=== PATIENT | male | born 1935 ===

== ENCOUNTER 2018-04-16 06:08 | Day surgery (SDC) | payer MEDICARE, MEDICAID ==
--- NOTE | 2018-04-12 08:52 | Pre-Procedure Note/Attestation ---
Pre-Procedure Note/Attestation Complete Prior to Procedure Planned Procedure: right Procedure Narrative: 1. CATARACT EXTRACTION WITH PHACO AND PC IOL IMPLANTATION, RIGHT EYE. 2. LIMBAL RELAXING INCISION, RIGHT EYE 3.MALYUGIN RING INSERTION, RIGHT EYE FOR FLOPPY IRIS SYNDROME. 4.COMPLEX CATARACT , RIGHT EYE Indications for Procedure Pre-Operative Diagnosis: 1. CATARACT , RIGHT EYE. 2. ASTIGMATISM, RIGHT EYE. 3. FLOPPY IRIS SYNDROME, RIGHT EYE 4. COMPLEX CATARACT , RIGHT EYE Attestation I attest that I discussed the nature of the procedure; its benefits; risks and complications; and alternatives (and the risks and benefits of such alternatives ), prior to the procedure, with the patient (or the patient's legal personal service representative). I attest that, if there was a reasonable possibility of needing a blood transfusion, the patient (or the patient's legal personal service representative) was given the [facility] standardized written summary, pursuant to the Asim Delon Blood Safety Act ([place] Health and Safety Code # 1645, as amended). I attest that I re-evaluated the patient just prior to the surgery and that there has been no change in the patient's H&P, except as documented below: Jaun White MD Apr 12, 2018 08:52
--- NOTE | 2018-04-15 13:20 | NUR ---
LEFT MESSAGE WITH INSTRUCTIONS WITH [facility] [employer] CLIENT MANAGER,BUBBA #[id number].
[2018-04-16] VITALS (9 sets, daily range): BP systolic 129–147; BP diastolic 63–79
[~2018-04-16] VITALS: Ht 182.9 cm; Wt 82.1 kg
[~2018-04-16 06:08] MED LIST: acetaZOLAMIDE 125mg tab ORAL ONE
[2018-04-16] MEDS: Phenylephrine 10% Opth Soln 5ml RIGHT EYE SCH ×3 (06:48→07:07)
[2018-04-16] MEDS: Akten 3.5% 1ml Btl RIGHT EYE SCH ×3 (06:48→07:06)
[2018-04-16] MEDS: Vigamox Opth Soln 3ml RIGHT EYE SCH ×3 (06:48→07:07)
[2018-04-16] MEDS: Tropicamide 1% Opth 15ml Soln RIGHT EYE SCH ×3 (06:48→07:07)
[2018-04-16] MEDS: Diclofenac Sod 0.1% Op Soln RIGHT EYE SCH ×3 (06:48→07:06)
[2018-04-16] MEDS ORDERED: NS Irrig 1000ml ONE (07:00)
[2018-04-16] MEDS ORDERED: Sterile Water Irrig 1000ml IRRIG ONE (07:00)
[2018-04-16] MEDS ORDERED: EPINEPHrine 1mg/1ml Amp ONE (07:11)
[2018-04-16] MEDS ORDERED: Povidone-Iodine 5% opth solution ONE (07:12)
[2018-04-16] MEDS ORDERED: BSS 500ml btl ONE (07:12)
[2018-04-16] MEDS ORDERED: Dexamethasone 4mg/ml vial ONE (07:12)
[2018-04-16] MEDS ORDERED: Sodium Hyaluronate 10 mg/ml 0.85ml ONE ×2 (07:12→09:16)
[2018-04-16] MEDS ORDERED: BSS 15ml BTL ONE (07:12)
[2018-04-16] MEDS ORDERED: Lidocaine 1% MPF 10mg/ml 5ml ONE ×2 (07:12→08:30)
[2018-04-16] MEDS ORDERED: SIMVASTATIN5 MG ORAL (07:13)
[2018-04-16] MEDS ORDERED: VENTOLIN HFA18 GM INH (07:13)
[2018-04-16] MEDS ORDERED: UNOBMED (07:13)
[2018-04-16] MEDS ORDERED: Propofol 200mg/20ml IV ONE (08:30)
[2018-04-16] MEDS ORDERED: LR 1000ml ONE (08:30)
[2018-04-16] MEDS ORDERED: Midazolam 2mg/2ml Inj ONE (08:38)
[2018-04-16] MEDS ORDERED: fentaNYL 100 mcg/2 mL IV PRN (08:45)
[2018-04-16] MEDS ORDERED: LORazepam Inj 2mg/ml 1ml IV PRN (08:45)
[2018-04-16] MEDS ORDERED: Metoclopramide 10mg/2ml Inj IVP PRN (08:45)
[2018-04-16] MEDS ORDERED: Midazolam 2mg/2ml Inj IVP PRN (08:45)
[2018-04-16] MEDS ORDERED: HYDROcodone/Acetamin 7.5/325 tab ORAL PRN (08:45)
[2018-04-16] MEDS ORDERED: DiphenhydrAMINE 50mg/ml Inj IVP PRN (08:45)
[2018-04-16] MEDS ORDERED: Meperidine 50mg/ml Inj(FOR RIGORS ONLY) IVP PRN (08:45)
[2018-04-16] MEDS ORDERED: Atropine Sulfate 0.4mg/ml inj IVP PRN (08:45)
[2018-04-16] MEDS ORDERED: Hydromorphone 0.5mg/0.5ml inj IVP PRN (08:45)
[2018-04-16] MEDS ORDERED: LR 1000ml 1,000 ML IVLG SCH (08:45)
[2018-04-16] MEDS ORDERED: oxyCODONE HCL/Acetaminophen 5/325mg ORAL PRN (08:45)
[2018-04-16] MEDS ORDERED: Norco 5mg/325mg tab ORAL PRN (08:45)
[2018-04-16] MEDS ORDERED: Ketorolac 30mg Inj IV PRN ×2 (08:45)
--- NOTE | 2018-04-16 08:53 | Anethesia Preoperative Eval ---
Anesthesia Pre-op PMH/ROS General Date of Evaluation: Apr 16, 2018 Time of Evaluation: 08:39 Anesthesiologist: Toribio ASA Score: ASA 3 Mallampati Score Class I : Soft palate, uvula, fauces, pillars visible Class II: Soft palate, uvula, fauces visible Class III: Soft palate, base of uvula visible Class IV: Only hard plate visible Mallampati Classification: Class II Surgeon: Cindy Diagnosis: Cataract OD Surgical Procedure: Cat Ext IOL OD Anesthesia History: none Family History: no anesthesia problems Allergies: Coded Allergies: No Known Allergies (Unverified , 04/16/18) Medications: see eMAR Patient NPO?: Yes Past Medical History Cardiovascular: Reports: other - HL Pulmonary: Reports: asthma HEENT: Reports: cataract (L), cataract (R) Musculoskeletal/Integumentary: Reports: DJD PSxH Narrative: Prostatectomy, R THR, Cervical Spine SX Anesthesia Pre-op Phys. Exam Physician Exam Last Vital Signs Date Time Temp Pulse Resp B/P (MAP) Pulse Ox O2 Delivery O2 Flow Rate FiO2 04/16/18 07:03 Room Air 04/16/18 06:52 98.1 59 18 129/63 96 Constitutional: NAD Neurologic: CN 2-12 intact Cardiovascular: RRR Respiratory: CTA Gastrointestinal: S/NT/ND Airway Exam Mallampati Score: Class II MO: limited ROM: limited Teeth: missing, intact Anesthesia Pre-op A/P Risk Assessment & Plan Assessment: ASA 3 Plan: GA Status Change Before Surgery: No Christian Rooney MD Apr 16, 2018 08:53
--- NOTE | 2018-04-16 09:02 | 48 Hour Post Anesthesia Eval ---
Post Anesthesia Evaluation Procedure: Cat Ext IOL OD Date of Evaluation: Apr 16, 2018 Time of Evaluation: 12:06 Blood Pressure Systolic: 141 0: 78 Pulse Rate: 62 Respiratory Rate: 18 Temperature (Fahrenheit): 98.2 O2 Sat by Pulse Oximetry: 97 Airway: patent Nausea: No Vomiting: No Pain Intensity: 1 Hydration Status: adequate Cardiopulmonary Status: Stable Mental Status/LOC: patient returned to baseline Follow-up Care/Observations: 0 Post-Anesthesia Complications: 0 Follow-up care needed: ready to discharge Christian Rooney MD Apr 16, 2018 09:02
--- NOTE | 2018-04-16 09:02 | Immediate Post-Op Evaluation ---
Immediate Post-Op Evalulation Immediate Post-Op Evalulation Procedure: Cat Ext IOL OD Date of Evaluation: Apr 16, 2018 Time of Evaluation: 09:52 IV Fluids: 800 LR Blood Products: 0 Estimated Blood Loss: 1 Urinary Output: 0 Blood Pressure Systolic: 142 Blood Pressure Diastolic: 79 Pulse Rate: 56 Respiratory Rate: 16 O2 Sat by Pulse Oximetry: 97 Temperature (Fahrenheit): 97.8 Pain Score (1-10): 1 Nausea: No Vomiting: No Complications 0 Patient Status: awake, reacts, patent, none Hydration Status: adequate Christian Rooney MD Apr 16, 2018 09:02
--- NOTE | 2018-04-16 09:57 | Discharge Summary ---
Discharge Summary Discharge Summary Discharge Summary DATE OF ADMISSION: 04/16/18 DATE OF DISCHARGE: 04/16/18 REASON FOR HOSPITALIZATION: Cataract right eye 2- Astigmatism right eye SURGERY PERFORMED: 1- Cataract extraction with phaco 2- LRI OD 3- Complex cataract removal Malyugin ring insertion, OD CONDITION IN THE HOSPITAL:The patient tolerated the surgery without complications. DISCHARGE CONDITION: The patient was stable at discharge. DISCHARGE MEDICATIONS: 1. Vigamox eye drops one drop q.i.d, 2. Prednisolone one drop q.i.d, 3. Prolenza one drop QD, OD POSTOPERATIVE ORDERS: The patient has to rest at home. No bending, No lifting, No watching Television tonight. POSTOPERATIVE FOLLOW UP: The patient will be followed in my office tomorrow morning at 7 o'clock. Jaun White MD Apr 16, 2018 09:57
--- NOTE | 2018-04-16 10:01 | Brief Operative Note ---
Immediate Post Operative Note Operative Note Chief Complaint: Blurry vision difficulty reading and watching TV Pre-op Diagnosis: 1. CATARACT , RIGHT EYE. 2. ASTIGMATISM, RIGHT EYE. 3. FLOPPY IRIS SYNDROME, RIGHT EYE 4. COMPLEX CATARACT , RIGHT EYE Procedure: 1- Cataract extraction with phaco and PC IOL implantation, right eye 2- Lumbal Relaxing Incision ( LRI ), right eye 3- Malyugin ring insertion fro the treatment floppy iris syndrome 4- Complex cataract removal, right eye Post-op Diagnosis: same as pre-op Surgeon: Jaun White MD. Harvest Worker Fruit: None Additional Surgeons: None Anesthesiologist: Dr. Betacnur Anesthesia: MAC Specimen: none Complications: none Condition: stable Fluids: 500ml Estimated Blood Loss: none Drains: none Implant(s) used?: Yes - Monofocal PC IOL implanted in the right eye without complication Jaun White MD Apr 16, 2018 10:01
[2018-04-16] MEDS ORDERED: acetaZOLAMIDE 125mg tab ONE (10:08)
--- NOTE | 2018-04-17 02:45 | Operative Note - Dictated ---
DATE OF OPERATION: 04/16/2018 FACILITY: [facility]. SURGEON: Jaun White M.D. CASTING CARRIER: None. ANESTHESIOLOGIST: Christian Rooney M.D. ANESTHESIA: Monitored anesthesia care (MAC). PREOPERATIVE DIAGNOSES: 1. Cataract, right eye. 2. Astigmatism, right eye. 3. Floppy iris syndrome, right eye. 4. Complex cataract, right eye. POSTOPERATIVE DIAGNOSES: 1. Cataract, right eye. 2. Astigmatism, right eye. 3. Floppy iris syndrome, right eye. 4. Complex cataract, right eye. SURGERY PERFORMED: 1. Cataract extraction with phacoemulsification and posterior chamber intraocular lens implantation in the right eye. 2. Limbal relaxing incision (LRI), right eye. 3. Insertion of Malyugin ring treatment of floppy iris syndrome in the right eye. 4. Complex cataract removal, right eye. INDICATION FOR SURGERY: The patient is an 83-year-old gentleman with history of benign prostatic hypertrophy, hypertension, hypercholesterolemia, asthma, coronary artery disease, history of surgery including hip replacement. He is taking medications including tamsulosin mg, montelukast sodium, Ventolin, albuterol, atorvastatin, digoxin, multivitamin, and potassium. He is not allergic to any medications. He is not a smoker and he is not a drinker. He is complaining of blurry vision in the right eye. He has had epiretinal membrane and macular degeneration in the right eye and he is receiving some injection for treatment of macular degeneration in the right eye. On examination of the right eye, the cornea is clear. Anterior chamber is clean and quiet. Pupillary reflex is normal, but pupil did not dilate well because of Flomax use for BPH. There is 4+ nuclear sclerosis and 2+ cortical cataract. Funduscopy shows macular degeneration. Optic disc is normal. Periphery retina is flat. To improve his vision in the right eye, the cataract has to removed and posterior chamber intraocular lens has to be implanted and astigmatism has to be addressed as well. The patient has a complex cataract in the right eye. INFORMED CONSENT: The nature of the surgery, risks, benefits, alternatives, and potential complications were explained all in detail to the patient. Potential complications including, but not limited to bleeding, infection, posterior capsular rupture, lens subluxation, flat anterior chamber, iris prolapse, uveitis, corneal edema, macular edema, endophthalmitis, retinal detachment, loss of vision and even loss of the eye, and even were all explained in detail to the patient. The patient voiced understanding and accepted all the complications. The alternatives including accommodating lens, multifocal lens, toric lens, and conventional cataract surgery with limbal relaxing incision (LRI) for treatment of astigmatism were all explained in detail to the patient in his language, Farsi. The patient voiced understanding. The patient elected to have only conventional cataract surgery and limbal relaxing incision in the right eye. Then, he signed the consent form, which is in the chart. DESCRIPTION OF SURGERY AND FINDINGS: Following that, the patient was taken to the operation room in a stable condition. Lidocaine gel, Akten 3.5% was applied to the conjunctiva of the right eye. IV sedation was given by the anesthesiologist, Dr. Rooney. After adequate anesthesia and sedation had been achieved, the right eye was prepped and draped in a sterile fashion for intraocular surgery. Following that, a speculum was placed in the right eye. Before the patient was taken to the operation room, the cornea was marked at 180 and 90 meridian. In the operation room, using a corneal marker and marking pen, the steep meridian of the cornea was marked. Following that, using a eleazar knife with 550 micron blade, two parallel incisions were placed on the steep meridian of the cornea to treat the astigmatism. Following that, using a Super Sharp knife, a clear corneal side port was created. A 1% lidocaine without preservative (MPF) was injected into the anterior chamber. Viscoelastic agent, Healon was injected into the anterior chamber. Following that, a clear corneal temporal keratotomy was performed with 2.8 mm keratome. Following that, viscoelastic agent was injected into the anterior chamber again. A 7 mm Malyugin ring was inserted into the anterior chamber. The coils of the Malyugin ring were engaged with the sphincter of the pupil to create a eleazar shaped space for safe phacoemulsification. Following that, the VisionBlue was injected under the viscoelastic agent to stain the anterior capsule of the crystalline lens. Following that, a clear viscoelastic agent was injected into the anterior chamber again. Under the viscoelastic agent, an anterior capsulotomy was performed in the fashion of capsulorrhexis beautifully. Following that, whole viscoelastic agent was removed from the anterior chamber. Following that, using balanced salt solution, hydrodissection and hydrodelineation was performed and the nucleus was freed. Following that, clear viscoelastic agent was injected into the anterior chamber to protect the endothelium of the cornea. Following that, using the phacoemulsification machine in the fashion of horizontal chop, the nucleus was removed in toto. Following that, using irrigation and aspiration unit, the cortical material was removed from the capsular bag and the capsular bag was polished. Following that, the capsular bag was filled with viscoelastic agent, Healon. Following that, a +22.0 diopter PCB00 foldable IOL with serial number [id number] was injected into the capsular bag. Using a Sinskey hook, the lens was manipulated and put in the proper position. Following that, the whole viscoelastic agent was removed from the anterior and posterior part of the lens. Following that, the anterior chamber was filled with balanced salt solution and the wound was hydrated with balanced salt solution. The wound was checked for leakage, there was no leakage. Vigamox eye drops were applied to the conjunctiva of the right eye. The patient tolerated the surgery without complications. At the end of the surgery, the eye was patched with a clear sterile fenestrated shield. Following that, the patient was transferred to the recovery room. In the recovery room, 125 mg of Diamox was given by mouth stat. Postoperative directions and orders were given to the patient. The patient will be discharged home upon stabilization. The patient will be followed in my office tomorrow morning. Jaun White M.D. DR: Ade JOB#: [id number] CC:
== END 2018-04-16 11:10 | disposition home or self-care (01) ==
LOC: SUR 06:08
DX: H25.811 Combined forms of age-related cataract, right eye (principal); H52.201 Unspecified astigmatism, right eye; H21.81 Floppy iris syndrome; E78.00 Pure hypercholesterolemia, unspecified; I10 Essential (primary) hypertension; N40.0 Benign prostatic hyperplasia without lower urinary tract symptoms; I25.10 Atherosclerotic heart disease of native coronary artery without angina pectoris; J45.909 Unspecified asthma, uncomplicated; M19.90 Unspecified osteoarthritis, unspecified site; Z90.79 Acquired absence of other genital organ(s); Z96.649 Presence of unspecified artificial hip joint
CPT/HCPCS: 66982; 66999; J0171; J1100; J2250; J2704; V2632; 94003; 94150

== ENCOUNTER 2018-04-30 06:31 | Day surgery (SDC) | payer MEDICARE, OTHER ==
--- NOTE | 2018-04-26 08:01 | Pre-Procedure Note/Attestation ---
Pre-Procedure Note/Attestation Complete Prior to Procedure Planned Procedure: left Procedure Narrative: 1. CATARACT EXTRACTION WITH PHACO AND PC IOL IMPLANTATION, LEFT EYE. 2. LIMBAL RELAXING INCISION, LEFT EYE 3.MALYUGIN RING INSERTION, LEFT EYE FOR FLOPPY IRIS SYNDROME. 4.COMPLEX CATARACT , LEFT EYE Indications for Procedure Pre-Operative Diagnosis: 1. CATARACT , LEFT EYE. 2. ASTIGMATISM, LEFT EYE. 3. FLOPPY IRIS SYNDROME, LEFT EYE 4. COMPLEX CATARACT ,LEFT EYE Attestation I attest that I discussed the nature of the procedure; its benefits; risks and complications; and alternatives (and the risks and benefits of such alternatives ), prior to the procedure, with the patient (or the patient's legal real estate representative). I attest that, if there was a reasonable possibility of needing a blood transfusion, the patient (or the patient's legal real estate representative) was given the [facility] standardized written summary, pursuant to the Asim Wanchese Blood Safety Act ([place] Health and Safety Code # 1645, as amended). I attest that I re-evaluated the patient just prior to the surgery and that there has been no change in the patient's H&P, except as documented below: Jaun White MD Apr 26, 2018 08:01
--- NOTE | 2018-04-29 10:31 | NUR ---
ADMITTED VIA [facility]#[id number].
[2018-04-30] VITALS (10 sets, daily range): BP systolic 109–138; BP diastolic 57–75
[~2018-04-30] VITALS: Ht 185 cm; Wt 82.6 kg
[~2018-04-30 06:31] MED LIST changes: +SIMVASTATIN5 MG ORAL; +UNOBMED; +VENTOLIN HFA18 GM INH
[2018-04-30] MEDS: Diclofenac Sod 0.1% Op Soln LEFT EYE SCH ×3 (06:49→07:11)
[2018-04-30] MEDS: Vigamox Opth Soln 3ml LEFT EYE SCH ×3 (06:49→07:11)
[2018-04-30] MEDS: Tropicamide 1% Opth 15ml Soln LEFT EYE SCH ×3 (06:49→07:10)
[2018-04-30] MEDS: Phenylephrine 10% Opth Soln 5ml LEFT EYE SCH ×3 (06:50→07:11)
[2018-04-30] MEDS: Akten 3.5% 1ml Btl LEFT EYE SCH ×3 (06:50→07:11)
[2018-04-30] MEDS ORDERED: Lidocaine 1% MPF 10mg/ml 5ml ONE (07:09)
[2018-04-30] MEDS ORDERED: EPINEPHrine 1mg/1ml Amp ONE (07:09)
[2018-04-30] MEDS ORDERED: Dexamethasone 4mg/ml vial ONE (07:09)
[2018-04-30] MEDS ORDERED: BSS 500ml btl ONE (07:09)
[2018-04-30] MEDS ORDERED: Carbachol 0.01% Op Soln 1.5ml vial ONE (07:09)
[2018-04-30] MEDS ORDERED: Tetracaine 0.5% Opth 4ml Soln ONE (07:10)
[2018-04-30] MEDS ORDERED: BSS 15ml BTL ONE (07:10)
[2018-04-30] MEDS ORDERED: Povidone-Iodine 5% opth solution ONE (07:10)
[2018-04-30] MEDS ORDERED: Sodium Hyaluronate 10 mg/ml 0.85ml ONE (07:10)
[2018-04-30] MEDS ORDERED: POTASSIUM CHLO10 ME3 ORAL (07:18)
[2018-04-30] MEDS ORDERED: SYMBICORT 1601 PUFFS INH (07:18)
[2018-04-30] MEDS ORDERED: MONTELUKAST SOD10 MG ORAL (07:18)
[2018-04-30] MEDS ORDERED: AVODART0.5 MG ORAL (07:18)
[2018-04-30] MEDS ORDERED: DIGOXIN125 MCG ORAL (07:18)
[2018-04-30] MEDS ORDERED: TAMSULOSIN HCL0.4 MG ORAL (07:18)
[2018-04-30] MEDS ORDERED: LEXAPRO10 MG ORAL (07:18)
[2018-04-30] MEDS ORDERED: AMLODIPINE BESYL5 MG ORAL (07:18)
[2018-04-30] MEDS ORDERED: LR 1000ml ONE (07:30)
[2018-04-30] MEDS ORDERED: Midazolam 2mg/2ml Inj ONE (07:30)
[2018-04-30] MEDS ORDERED: Sterile Water Irrig 1000ml IRRIG ONE (07:30)
[2018-04-30] MEDS ORDERED: fentaNYL 100 mcg/2 mL IV ONE (07:30)
[2018-04-30] MEDS ORDERED: NS Irrig 1000ml ONE (07:30)
[2018-04-30] MEDS ORDERED: LR 1000ml 1,000 ML IVLG SCH (07:59)
[2018-04-30] MEDS ORDERED: fentaNYL 100 mcg/2 mL IV PRN (08:00)
[2018-04-30] MEDS ORDERED: DiphenhydrAMINE 50mg/ml Inj IVP PRN (08:00)
[2018-04-30] MEDS ORDERED: Atropine Inj 1mg/10ml Syr IV PRN (08:00)
[2018-04-30] MEDS ORDERED: Midazolam 2mg/2ml Inj IVP PRN (08:00)
--- NOTE | 2018-04-30 08:05 | Anethesia Preoperative Eval ---
Anesthesia Pre-op PMH/ROS General Date of Evaluation: Apr 30, 2018 Time of Evaluation: 07:20 Anesthesiologist: sophia ASA Score: ASA 4 Mallampati Score Class I : Soft palate, uvula, fauces, pillars visible Class II: Soft palate, uvula, fauces visible Class III: Soft palate, base of uvula visible Class IV: Only hard plate visible Mallampati Classification: Class II Surgeon: sherri Diagnosis: nuclear cataract left eye Surgical Procedure: cataract extraction w/ iol implant left eye Anesthesia History: none Social History: current smoker Family History: no anesthesia problems Allergies: Coded Allergies: No Known Allergies (Unverified , 04/16/18) Medications: see eMAR Patient NPO?: Yes Past Medical History Cardiovascular: Reports: HTN, other - hypercholesterolemia Pulmonary: Reports: asthma Gastrointestinal/Genitourinary: Reports: other - bph HEENT: Reports: cataract (L), cataract (R) PSxH Narrative: prostatectomy, spine sx Anesthesia Pre-op Phys. Exam Physician Exam Last Vital Signs Date Time Temp Pulse Resp B/P (MAP) Pulse Ox O2 Delivery O2 Flow Rate FiO2 04/30/18 07:03 Room Air 04/30/18 07:01 98.3 63 18 129/69 95 Constitutional: NAD Neurologic: CN 2-12 intact Cardiovascular: RRR Respiratory: CTA Gastrointestinal: S/NT/ND Airway Exam Mallampati Score: Class II MO: limited Neck: flexible TMD: 2fb ROM: limited Anesthesia Pre-op A/P Risk Assessment & Plan Assessment: asa4 Plan: mac Status Change Before Surgery: No Pre-Antibiotics Drug: Berenice Camacho MD Apr 30, 2018 08:05
[2018-04-30] MEDS ORDERED: acetaZOLAMIDE 125mg tab ONE (08:33)
--- NOTE | 2018-04-30 08:35 | Discharge Summary ---
Discharge Summary Discharge Summary Discharge Summary DATE OF ADMISSION: 04/30/2018 DATE OF DISCHARGE: 04/30/2018 REASON FOR HOSPITALIZATION: cATARACT PLUS ASTIGMATISM, LEFT EYE SURGERY PERFORMED: 1- cataract extraction with phaco, left eye 2- LRI OS CONDITION IN THE HOSPITAL:The patient tolerated the surgery without complications. DISCHARGE CONDITION: The patient was stable at discharge. DISCHARGE MEDICATIONS: 1. Vigamox eye drops one drop q.i.d, OS 2. Prednisolone one drop q.i.d, OS 3. Prolenza one drop QD, OS POSTOPERATIVE ORDERS: The patient has to rest at home. No bending, No lifting, No watching Television tonight. POSTOPERATIVE FOLLOW UP: The patient will be followed in my office tomorrow morning at 7 o'clock. Jaun White MD Apr 30, 2018 08:35
--- NOTE | 2018-04-30 09:17 | Immediate Post-Op Evaluation ---
Immediate Post-Op Evalulation Immediate Post-Op Evalulation Procedure: cataract extraction w/ iol implant right eye Date of Evaluation: Apr 30, 2018 Time of Evaluation: 08:42 IV Fluids: 300ml lr Blood Products: none Estimated Blood Loss: negligible Blood Pressure Systolic: 138 Blood Pressure Diastolic: 75 Pulse Rate: 63 Respiratory Rate: 18 O2 Sat by Pulse Oximetry: 98 Temperature (Fahrenheit): 97.0 Pain Score (1-10): 0 Nausea: No Vomiting: No Complications none Patient Status: awake, reacts, patent Hydration Status: adequate Drug: Berenice Camacho MD Apr 30, 2018 09:16
--- NOTE | 2018-04-30 09:18 | 48 Hour Post Anesthesia Eval ---
Post Anesthesia Evaluation Procedure: cataract extraction w/ iol implant right eye Date of Evaluation: Apr 30, 2018 Time of Evaluation: 08:44 Blood Pressure Systolic: 125 0: 68 Pulse Rate: 63 Respiratory Rate: 18 Temperature (Fahrenheit): 97.0 O2 Sat by Pulse Oximetry: 98 Airway: patent Nausea: No Vomiting: No Pain Intensity: 0 Hydration Status: adequate Cardiopulmonary Status: stable Mental Status/LOC: patient returned to baseline Post-Anesthesia Complications: none Follow-up care needed: N/A Berenice Dejesus MD Apr 30, 2018 09:18
--- NOTE | 2018-04-30 11:52 | Brief Operative Note ---
Immediate Post Operative Note Operative Note Pre-op Diagnosis: 1. CATARACT , LEFT EYE. 2. ASTIGMATISM, LEFT EYE. 3. FLOPPY IRIS SYNDROME, LEFT EYE 4. COMPLEX CATARACT ,LEFT EYE Procedure: 1- Cataract extraction with phaco and PC IOL implantation, left eye 2- Limbal relaxing incision ( LRI ), left eye 3- Insertion Malyugin ring, OS 4- Complex cataract extraction, OS Post-op Diagnosis: same as pre-op Surgeon: Jaun White MD Gymnastic Coach: None Additional Surgeons: None Anesthesiologist: Oleg Anesthesia: MAC Specimen: none Complications: none Condition: stable Fluids: 500ml Estimated Blood Loss: none Drains: none Implant(s) used?: Yes - Monofocal PC IOL implanted in the left eye without complication Jaun White MD Apr 30, 2018 11:52
--- NOTE | 2018-04-30 14:45 | Pre-op HX & Phy Repo 2 SIG ---
DATE OF ADMISSION: 04/30/2018 PRESURGICAL INTERNAL MEDICINE HISTORY AND PHYSICAL REASON FOR EVALUATION: I was asked by Dr. Jaun White to see this 83-year-old man, who is going for elective surgery on the left eye. The patient has nuclear sclerotic cataract to his left eye. The patient was evaluated. Chart was reviewed at [facility] Outpatient Department. PAST MEDICAL HISTORY AND REVIEW OF SYSTEMS: Remarkable for history of hypertension. No heart attack. No history of hypertension, bronchial asthma, bladder cancer with surgery, history of hyperlipidemia, history of chronic constipation, history of anxiety and depression. No thyroid problem. No anemia. No GI bleeding or hepatitis. No renal failure. History of degenerative joint disease. PAST SURGICAL HISTORY: Right hip replacement and bladder surgery for bladder tumor and prostate surgery. FAMILY HISTORY: Mother and father of old age. ALLERGIES: Not known. PRESENT MEDICATIONS: Include Ventolin, amlodipine, digoxin, atorvastatin, Lexapro, Flomax, and Symbicort. The patient's home medication, Lexapro for depression. SOCIAL HISTORY: History of smoke for about three to four a day cigarettes, alcohol occasionally. No street drugs. PHYSICAL EXAMINATION: GENERAL: The patient is alert, by at bedside. VITAL SIGNS: Blood pressure 127/69 Dr. Jaun White. HEENT: Mouth, clear and moist. Missed few teeth. NECK: Supple. No jugular venous distention. Carotids artery +2. Trachea midline. CHEST: Mild kyphosis. LUNGS: No rales or rhonchi. Regular rhythm. No murmur. No S3 or S4. ABDOMEN: Soft, benign. No palpable mass. No rebound. Liver and spleen not enlarged. EXTREMITIES: No edema. Degenerative joint disease of knee post right hip replacement. GENITOURINARY: Denies dysuria. CVA nontender. Post bladder cancer surgery. NEUROLOGIC: No asymmetry. No tremor. DIAGNOSTIC DATA: Electrocardiogram sinus rhythm. Low QRS. Blood work pending. The patient did not drink from 8 p.m. yesterday. IMPRESSION: 1. Cataract, left eye. 2. Hypertension, controlled. 3. 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 4. Anxiety and depression. 5. History of bladder cancer. 6. History of bronchial asthma. 7. Chronic constipation. PLAN: Cataract extraction, left eye with intraocular lens implant per Dr. Jaun White. CONCLUSION: The patient's vital signs stable. O2 98% on room air. The patient . Nestor Luis M.D. DR: Marilee JOB#: [id number] CC:
--- NOTE | 2018-05-01 07:45 | Operative Note - Dictated ---
DATE OF OPERATION: 04/30/2018 FACILITY: [facility]. SURGEON: Jaun White M.D. ADOBE DEVELOPER: None. ANESTHESIOLOGIST: Dr. Ralph. ANESTHESIA: Monitored anesthesia care (MAC). PREOPERATIVE DIAGNOSES: 1. Cataract, left eye. 2. Astigmatism, left eye. 3. Floppy iris syndrome, left eye. 4. Complex cataract, left eye. POSTOPERATIVE DIAGNOSES: 1. Cataract, left eye. 2. Astigmatism, left eye. 3. Floppy iris syndrome, left eye. 4. Complex cataract, left eye. SURGERY PERFORMED: 1. Cataract extraction with phacoemulsification and posterior chamber intraocular lens implantation in the left eye. 2. Limbal relaxing incision (LRI), left eye. 3. Insertion of Malyugin ring for the treatment of floppy iris syndrome in the left eye. 4. Complex cataract removal, left eye. INDICATION FOR SURGERY: The patient is an 83-year-old gentleman with history of benign prostatic hypertrophy, hypertension, hypercholesterolemia, asthma, coronary artery disease, history of surgery including hip replacement. He is taking medications including tamsulosin, Flomax, montelukast, sodium, Ventolin, albuterol, atorvastatin, digoxin, multivitamin, and potassium. He is not allergic to any medications. He is not a smoker and he is not a drinker. He has had cataract surgery in the right eye two weeks ago and he is happy with the results. Now he is complaining of blurry vision in the left eye. He has had epiretinal membrane and macular degeneration in both eyes and he is receiving some injection for treatment of macular degeneration in the right eye. Examination of the left eye, the cornea is clear. Anterior chamber is clean and quiet. Pupillary reflex is normal. There is no RAPD, but the pupil did not dilate well because of Flomax use for BPH. There is 4+ nuclear sclerotic cataract and 2+ cortical cataract in the left eye. Funduscopy showed some macular changes. Optic disc is normal. Periphery retina is flat. To improve his vision in the left eye, the cataract has to removed and posterior chamber intraocular lens has to be implanted and astigmatism has to be addressed as well. The patient has a complex cataract in the left eye. INFORMED CONSENT: The nature of the surgery, risks, benefits, alternatives, and potential complications were explained all in detail to the patient. The potential complications including, but not limited to bleeding, infection, posterior capsular rupture, lens subluxation, flat anterior chamber, iris prolapse, uveitis, corneal edema, macular edema, endophthalmitis, retinal detachment, loss of vision, and even loss of the eye and even were all explained in detail to the patient. The patient voiced understanding and accepted all the complications. The alternatives including accommodating lens, multifocal lens, toric lens, and conventional cataract surgery with limbal relaxing incision (LRI) for treatment of astigmatism were all explained in detail to the patient in his language, Farsi. The patient voiced understanding. The patient elected to have only conventional cataract surgery with limbal relaxing incision in the left eye. Then, he signed the consent form, which is in the chart. DESCRIPTION OF SURGERY AND FINDINGS: Following that, the patient was taken to the operation room in a stable condition. Lidocaine gel, Akten 3.5% was applied to the conjunctiva of the left eye. IV sedation was given by the anesthesiologist, Dr. Ralph. After adequate anesthesia, sedation had been achieved, the left eye was prepped and draped in a sterile fashion for intraocular surgery. Following that, a speculum was placed into the left eye. Before the patient was taken to the operation room, the cornea was marked at 180 and 90 meridian. In the operating room, using a corneal marker and marking pen, the steep meridian of the cornea was marked. Following that, using a eleazar knife with 550 micron blade, two parallel incisions were placed on the steep meridian of the cornea to treat the astigmatism. Following that, using a Super Sharp knife, a clear corneal side port was created. A 1% lidocaine without preservative (MPF) was injected into the anterior chamber. Viscoelastic agent, Healon was injected into the anterior chamber. Following that, a clear corneal temporal keratotomy was performed using a 2.8 mm keratome. Following that, viscoelastic agent was injected into the anterior chamber. Following that, a 7 mm Malyugin ring was inserted into the anterior chamber. The coils of the Malyugin ring were engaged with the sphincter of the pupil to create a eleazar shaped space for safe phacoemulsification. Following that, a VisionBlue was injection under the viscoelastic agent to stain the anterior capsule of the crystalline lens. Following that, a clear viscoelastic agent was injected into the anterior chamber again. Under the viscoelastic agent, an anterior capsulotomy was performed in the fashion of capsulorrhexis beautifully. Following that, whole viscoelastic agent was removed from the anterior chamber. Following that, using balanced salt solution, hydrodissection and hydrodelineation were performed and the nucleus was freed. Following that, a clear viscoelastic agent was injected into the anterior chamber to protect the endothelium of the cornea. Following that, with phacoemulsification machine in the fashion of horizontal chop, the nucleus was removed in toto. Following that, with the irrigation aspiration unit, cortical material was removed from the capsular bag and the capsular bag was polished. Following that, the capsular bag was filled with viscoelastic agent, Healon. Following that, a +22.5 diopter, PCB00 foldable IOL with serial number #[id number] inserted into the capsular bag. Using a Sinskey hook, the lens was manipulated and put in the proper position. Following that, whole viscoelastic agent was removed from the anterior and posterior part of the lens. The anterior chamber was filled with balanced salt solution and the wound was hydrated with balanced salt solution. The wound was checked for leakage. There was no leakage. Vigamox eye drops were applied to the conjunctiva of the left eye. The patient tolerated the surgery without complications. At the end of the surgery, the eye was patched with a clear sterile fenestrated shield. Following that, the patient was transferred to the recovery room. In the recovery room, 125 mg Diamox was given by mouth stat. Postoperative orders and directions were given to the patient. The patient will be discharged home upon stabilization. The patient will be followed in my office tomorrow morning. Jaun White M.D. DR: CHASE JOB#: [id number] CC:
== END 2018-04-30 10:45 | disposition home or self-care (01) ==
LOC: SUR 06:31
DX: H25.12 Age-related nuclear cataract, left eye (principal); H52.202 Unspecified astigmatism, left eye; H21.81 Floppy iris syndrome; I10 Essential (primary) hypertension; J45.909 Unspecified asthma, uncomplicated; E78.5 Hyperlipidemia, unspecified; K59.09 Other constipation; N40.0 Benign prostatic hyperplasia without lower urinary tract symptoms; F41.9 Anxiety disorder, unspecified; F32.9 Major depressive disorder, single episode, unspecified; M19.90 Unspecified osteoarthritis, unspecified site; F17.210 Nicotine dependence, cigarettes, uncomplicated; E78.00 Pure hypercholesterolemia, unspecified; Z90.79 Acquired absence of other genital organ(s); Z96.641 Presence of right artificial hip joint; Z85.51 Personal history of malignant neoplasm of bladder
CPT/HCPCS: 66982; 66999; J0171; J1100; J2250; J3010; V2632; 94003; 94150